=== PATIENT | male | born 1955 | race African-American/Black ===

== ENCOUNTER 2021-09-24 17:01 | Emergency (ER) | payer OTHER ==
[2021-09-24 17:28] VITALS: TEMP 98; BMI 23.7
[2021-09-24 18:51] VITALS: PULSE 47
[2021-09-24 18:52] VITALS: BP 176/74
== END 2021-09-24 19:10 | disposition home or self-care (01) ==
LOC: EDBD 17:01 → JER 17:01
DX: F11.10 Opioid abuse, uncomplicated (principal)
CPT/HCPCS: 99281-25